=== PATIENT | male | born 1995 | race Caucasian/White ===

== ENCOUNTER 2024-06-22 16:27 | Emergency (ER) | payer MEDICAID ==
[~2024-06-22] VITALS: Ht 185.4 cm; Wt 72.7 kg
[2024-06-22 16:34] VITALS: BP 127/64; PULSE 116; RESP 16; TEMP 99.3; O2SAT 99
[2024-06-22] MEDS ORDERED: CLIN-142 PO (19:03)
[2024-06-22] MEDS: CLINDAMYCIN PHOS 150 MG/ML 4 ML VIAL IM ONE (19:19)
== END 2024-06-22 19:22 | disposition home or self-care (01) ==
LOC: EMS 16:27
DX: L03.113 Cellulitis of right upper limb (principal); F17.210 Nicotine dependence, cigarettes, uncomplicated
CPT/HCPCS: 99283; 96372; J3490